=== PATIENT | female | born 1950 | race Caucasian/White ===

== ENCOUNTER 2018-08-22 17:27 | Emergency (ER) | payer OTHER ==
[~2018-08-22] VITALS: Ht 157.5 cm; Wt 60.8 kg
== END 2018-08-22 19:19 | disposition home or self-care (01) ==
LOC: ER 17:27
DX: S62.165A Nondisplaced fracture of pisiform, left wrist, initial encounter for closed fracture (principal); W18.09XA Striking against other object with subsequent fall, initial encounter; Y93.89 Activity, other specified; Y92.413 State road as the place of occurrence of the external cause; Y99.8 Other external cause status

== ENCOUNTER 2022-09-05 14:19 | Outpatient (CLI) | payer OTHER | END 2022-09-05 14:31 | disposition home or self-care (01) | LOC: RAD 14:19 | DX: M25.561 Pain in right knee (principal); M25.562 Pain in left knee ==